=== PATIENT | male | born 1990 | race Caucasian/White ===

== ENCOUNTER 2020-07-09 04:51 | Emergency (ER) | payer MEDICAID, OTHER ==
--- NOTE | 2020-07-09 05:00 | NUR ---
PT BIB [facility]. PT WALKED INTO THE HOSPITAL WHILE THE MEDICS WALKED IN WITH 6 BAGS/LUGGAGE ON TOP OF THE EMS STRETCHER. PT LAUGHING SAYING HE HAS A LOT OF STUFF. NO PROBLEMS AMBULATING TO ROOM. PT TRIAGED AND PLACED ON CR MONITOR. PT STATES HE HAS BODY ACHES, AND MIGHT HAVE THE COVID, BUT THAT HE'S TAKEN ONE COVID VACCINE BUT NOT HIS SECOND ONE. PT IS ASKING FOR A COVID TEST. MD TO BEDSIDE TO [facility] PT.
--- NOTE | 2020-07-09 05:15 | NUR ---
WHEN THE RN WENT TO THE PT TO CONDUCT THE NASAL SWAB ON THE PT, PER REQUESTED, PT ASKED IF HE WAS GOING TO BE TESTED. PT WAS ADVISED THAT HE WAS THE ONE THAT REQUESTED THE TEST. PT IS NOW SHAKING HIS HEAD, AND GIGGLING WITH HIS HAND OVER HIS MOUTH AND NOSE, REFUSING TO HAVE THE TEST DONE. PT AGAIN NOTIFIED THAT HE REQUESTED THE COVID NASAL SWAB TEST. PT NOW ABSOLUTELY REFUSING TO HAVE THE SWAB TEST DONE. MD NOTIFIED AND PT REMAINS IN ROOM. AND NOW GOING TO SLEEP.
[2020-07-09 05:36] VITALS: BP 128/76
--- NOTE | 2020-07-09 05:50 | NUR ---
ON FURTHER ASSESMENT, HAS EVALUATED THE PT, AND NOW HAS DISCHARGED THE PT MEDICALLY, PT REFUSES TESTS FOR THE COMPLAINTS HE CAME IN FOR.
--- NOTE | 2020-07-09 05:55 | NUR ---
PT PROVIDED WITH D/C AND F/U INSTRUCTIONS AND GIVEN [facility] INFORMATION, AFTER HE WAS ASKED IF HE NEEDED A PLACE TO STAY. PT V/U. PT IS NOW TOLD THAT HE IS DISCHARGED FROM THE HOSPITAL. PT THEN STATES THAT HE CAN'T LEAVE BECAUSE HIS PHONE IS NOT CHARGED AND IF HE CAN CHARGE IT ON THE WALL. PT ADVISED THAT HE CAN NOT STAY AFTER BEING DISCHARGED JUST TO CHARGE HIS PHONE. PT AGAIN ADVISED HE IS MEDICALLY DISCHARGED AND THAT HE NEEDS TO CHANGE AND PACK HIS BAGS, ALL 6 OF THEM TO GO.
--- NOTE | 2020-07-09 06:10 | NUR ---
PT FINALLY ESCORTED TO THE WAITING ROOM, AFTER MAKING 3 TRIPS BACK TO HIS ROOM TO GRAB ALL HIS BAGS WHICH HE CAME IN WITH. PT IS NOW UPSET BECAUSE WE WON'T LET HIM STAY IN THE ROOM. STATING THAT HE DOESN'T HAVE A PHONE CHARGED. AND HE NEEDS TO CALL SOMEONE. PT ADVISED THAT THERE IS A PHONE THAT WILL BE PROVIDED TO HIM AT DISCHARGE DESK. PT NOW ACTING BELIGERANT AND ARGUING THAT HE NEEDS TO STAY. PT ADVISED THAT HE HAS BEEN MEDICALLY DISCHARGED. PT THEN BEGAN ASKING IF HE COULD BE SEEN FOR ANOTHER REASON, AFTER BEING MEDICALLY DISCHARGED SO HE WOULDN'T HAVE TO LEAVE. PT ADVISED THAT THE DOCTOR DID A MEDICAL SCREEN AND HE IS CLEARED, AND THE TESTS WE WANTED TO RUN TO PROVIDE ADEQUATE TREATMENT TO THE PT, WERE REFUSED BY THE SAME PT. F/U AND D/C INSTRUCTIONS GIVEN TO PT AND FOLLOW UP INFORMATION ALSO GIVEN TO PT AND HE V/U. PT ALSO PROVIDED WITH HOMELESS RETIREMENT INFORMATION PRIOR TO DEPARTURE. AT DISCHARGE DESK PT REFUSED TO CARRY HIS 6 BAGS OUT TO THE WAITING ROOM. SECURITY WITNESSED THE INTERACTION WHILE STANDING IN THE WAITING ROOM, AND IS NOW ASSISTING THE PT TO GET HIS THINGS AND/OR LEAVE THE HOSPITAL NOW THAT HE IS DISCHARGED.
== END 2020-07-09 06:15 | disposition home or self-care (01) ==
LOC: ED 05:21
DX: M79.10 Myalgia, unspecified site (principal); M79.671 Pain in right foot; M79.672 Pain in left foot
CPT/HCPCS: 99283

== ENCOUNTER 2020-08-10 04:39 | Emergency (ER) | payer SELFPAY ==
[~2020-08-10] VITALS: Ht 180.3 cm; Wt 109.5 kg
[2020-08-10 04:42] VITALS: BP 122/68
--- NOTE | 2020-08-10 07:17 | NUR ---
communications representative: pt from lobby to room 4
--- NOTE | 2020-08-10 07:45 | NUR ---
Pt provided with basin of water with soap to wash feet. Given clean pair of socks.
[2020-08-10] MEDS ORDERED: IBUPROFEN 600 MG TABLET ONE (08:19)
[2020-08-10] MEDS ORDERED: IBUPROFEN 600 MG TABLET PO ONE (09:00)
== END 2020-08-10 08:37 | disposition home or self-care (01) ==
LOC: ED 08:24
DX: M79.672 Pain in left foot (principal); M79.671 Pain in right foot; F17.200 Nicotine dependence, unspecified, uncomplicated
CPT/HCPCS: 99282